=== PATIENT | female | born 1985 | race Caucasian/White ===

== ENCOUNTER 2023-05-30 07:54 | Day surgery (SDC) | payer BC ==
[~2023-05-30 07:54] MED LIST: Bupivacaine 0.25% 10 ML SDV ONE; Bupivacaine 0.5% 30 ML SDV ONE; EPINEPHrine 1 MG/ML SDV ONE; Lactated Ringers 1,000 ML IV SCH; Sodium Chloride 0.9% 10 ML Syringe FLUSH PRN; Sodium Chloride 0.9% 10 ML Syringe FLUSH SCH
[2023-05-30 08:30] LABS: APPEARANCE,URINE CLEAR (Clear); BILIRUBIN,URINE NEGATIVE (Negative); COLOR,URINE YELLOW (Yellow); GLUCOSE,URINE NEGATIVE (Negative); KETONES,URINE NEGATIVE (Negative); LEUKOCYTE ESTERASE,URINE NEGATIVE (Negative); NITRITE,URINE NEGATIVE (Negative); OCCULT BLOOD,URINE TRACE-INTACT (Negative); PROTEIN,URINE NEGATIVE (Negative); UROBILINOGEN,URINE 0.2 (0.2-1.0)
[2023-05-30] MEDS ORDERED: diphenhydrAMINE 50 MG/ML SDV ONE (08:47)
[2023-05-30] MEDS ORDERED: fentaNYL 250 MCG/5 ML SDV ONE (08:47)
[2023-05-30] MEDS ORDERED: Propofol 200 MG/20 ML SDV ONE (08:47)
[2023-05-30] MEDS ORDERED: Midazolam 1 MG/ML 2 ML SDV ONE (08:47)
[2023-05-30] MEDS ORDERED: Rocuronium 50 MG/5 ML Vial ONE (08:47)
[2023-05-30] MEDS ORDERED: ceFAZolin 2 GM Vial ONE (08:48)
[2023-05-30] MEDS ORDERED: Ketorolac 30 MG/ML SDV ONE (08:48)
[2023-05-30] MEDS ORDERED: Ondansetron 4 MG/2 ML SDV ONE (08:48)
[2023-05-30] MEDS ORDERED: Lidocaine 1% 4 ML ONE (08:48)
[2023-05-30] MEDS ORDERED: Dexamethasone 4 MG/ML 5 ML MDV ONE (08:48)
[2023-05-30 09:00] LABS: BACTERIA,URINE RARE /hpf (FEW); MUCUS,URINE NOT SEEN /hpf (FEW); RBC,URINE 0-5 /hpf (0-5); WBC,URINE 0-5 /hpf (0-5)
[2023-05-30] MEDS ORDERED: HYDROmorphone 0.5 MG/0.5 ML Syringe ONE ×2 (11:11→11:27)
[2023-05-30] MEDS ORDERED: HYDROmorphone 0.5 MG/0.5 ML Syringe IVPUSH PRN (11:15)
[2023-05-30] MEDS ORDERED: fentaNYL 100 MCG/2 ML SDV IVPUSH PRN (11:15)
[2023-05-30] MEDS ORDERED: Ondansetron 4 MG/2 ML SDV IVPUSH PRN (11:15)
[2023-05-30] MEDS ORDERED: Neostigmine Methylsulfate 10 MG/10 ML MDV ONE (11:18)
[2023-05-30] MEDS ORDERED: Lactated Ringers 1,000 ML ONE (11:19)
[2023-05-30] MEDS ORDERED: Acetaminophen/oxyCODONE 325-5 MG Tab PO PRN (13:08)
== END 2023-05-30 14:40 | disposition home or self-care (01) ==
LOC: JD.SDS 07:54
PROVIDERS: ATTEND Obstetrics & Gynecology
DX: N92.0 Excessive and frequent menstruation with regular cycle (principal); N94.6 Dysmenorrhea, unspecified; M32.9 Systemic lupus erythematosus, unspecified; F17.200 Nicotine dependence, unspecified, uncomplicated; Z79.899 Other long term (current) drug therapy
CPT/HCPCS: 36415; 58552; 81001; 81025; 86850; 86900; 86901; A9270; J0171; J0690; J1100; J1170; J1200; J1885; J2250; J2405; J2704; J2710; J3010; J3490; J7120